=== PATIENT | female | born 1995 | race Caucasian/White ===

== ENCOUNTER 2018-12-24 09:01 | Day surgery (SDC) | payer OTHER ==
[2018-12-17 11:06] LABS: APPEARANCE,URINE CLEAR; BILIRUBIN,URINE NEGATIVE (NEGATIVE); COLOR,URINE YELLOW; GLUCOSE, URINE NEGATIVE (NEGATIVE); KETONES,URINE NEGATIVE (NEGATIVE); LEUKOCYTE ESTERASE,URINE NEGATIVE (NEGATIVE); NITRITE,URINE NEGATIVE (NEGATIVE); PROTEIN,URINE NEGATIVE (NEGATIVE); URINE SPECIFIC GRAVITY 1.014; UROBILINOGEN,URINE NEGATIVE mg/dL (<2.0)
[2018-12-17 11:08] LABS: HEMATOCRIT 41.1 % (36.0-47.0); HEMOGLOBIN 14.5 g/dL (12.0-15.5); MEAN CORPUSCULAR HEMOGLOBIN 31.6 pg (27.0-33.4); MEAN CORPUSCULAR HGB CONC 35.4 g/dL (32.0-36.0); MEAN CORPUSCULAR VOLUME 89 fl (80-97); PLATELET COUNT 171 10^3/uL (150-450); RED CELL DISTRIBUTION WIDTH 12.8 % (11.5-14.0); WHITE BLOOD COUNT 3.1 10^3/uL (4.0-10.5)
[2018-12-17 11:35] LABS: ANION GAP 10 (5-19); BLOOD UREA NITROGEN 18 mg/dL (7-20); CALCIUM 10.2 mg/dL (8.4-10.2); CARBON DIOXIDE 29 mmol/L (22-30); CHLORIDE 103 mmol/L (98-107); GLUCOSE 89 mg/dL (75-110); POTASSIUM 4.5 mmol/L (3.6-5.0)
[~2018-12-24 09:01] MED LIST: ACETAMINOPHEN 1,000 MG/100 ML RTUPB IV ONE; BUPIVACAINE HCL 0.25 % INJ/PF (2.5 MG/1 ML) 30 ML VIAL ONE; CEFAZOLIN 2 GM/D5W RTU 2 GM/50 ML RTUPB IV ONE; CEFAZOLIN 2 GM/D5W RTU 2 GM/50 ML RTUPB IV PRN; FENTANYL CITRATE INJ/PF 100 MCG/2 ML AMPUL ONE; GABAPENTIN 300 MG CAPSULE PO PRN; HYDROMORPHONE HCL INJ/PF 2 MG/ML AMPULE ONE; LACTATED RINGERS 1000 ML IV PRN; LIDOCAINE 0.5% INJ-PF (5 MG/ML) 50 ML SDV SUBCUT PRN; MIDAZOLAM 2 MG/2 ML INJ ONE; PROPOFOL INJ 200 MG/20 ML VIAL IV ONE; RINGERS SOLUTION,LACTATED 1,000 ML IV PRN
[2018-12-24] MEDS ORDERED: GABAPENTIN 300 MG CAPSULE ONE (09:27)
[2018-12-24 10:33] LABS: INTERNATIONAL RATION (INR) 0.96; PROTHROMBIN TIME 13.3 SEC (11.4-15.4)
[2018-12-24 10:34] LABS: PARTIAL THROMBOPLASTIN TIME 28.2 SEC (23.5-35.8)
[2018-12-24] MEDS ORDERED: SUCCINYLCHOLINE CHLORIDE INJ 200 MG/10 ML VIAL ONE (11:56)
[2018-12-24] MEDS ORDERED: DEXAMETHASONE SOD PHOSPHATE INJ 4 MG/1 ML VIAL ONE (11:56)
[2018-12-24] MEDS ORDERED: KETOROLAC TROMETHAMINE 60 MG/2 ML SDV ONE (11:56)
[2018-12-24] MEDS ORDERED: ONDANSETRON HCL INJ/PF 4 MG/2 ML SDV ONE (11:56)
[2018-12-24] MEDS ORDERED: MEPERIDINE HCL/PF INJ 25 MG/1 ML DISP.SYRIN IV PRN (12:09)
[2018-12-24] MEDS ORDERED: OXYCODONE-ACETAMINOPHEN 5-325 MG TABLET PO PRN ×2 (12:09)
[2018-12-24] MEDS ORDERED: PROMETHAZINE HCL INJ 25 MG/1 ML VIAL IV PRN (12:09)
[2018-12-24] MEDS ORDERED: ONDANSETRON HCL INJ/PF 4 MG/2 ML SDV IV PRN ×2 (12:09→14:43)
[2018-12-24] MEDS ORDERED: DIPHENHYDRAMINE HCL 50 MG/ML VIAL IV PRN (12:09)
[2018-12-24] MEDS ORDERED: MORPHINE SULFATE 10 MG/ML INJ IV PRN (12:09)
[2018-12-24] MEDS ORDERED: FENTANYL CITRATE INJ/PF 100 MCG/2 ML AMPUL IV PRN ×3 (12:09)
[2018-12-24] MEDS ORDERED: NALOXONE HCL INJ/PF 0.4 MG/1 ML SDV ONE (13:44)
--- NOTE | 2018-12-24 13:59 | Discharge Summary ---
Discharge Summary (SDC) - Discharge Final Diagnosis: Dysmenorrhea Gender Identity Disorder Date of Surgery: 12/24/18 Discharge Date: 12/24/18 Condition: Good Forms: Post Operative Treatment or Instructions: Robotic assisted total laparoscopic hysterectomy and bilateral salpingo- oophorectomy Prescriptions: Ibuprofen [Motrin 800 mg Tablet] 800 mg PO Q8H PRN #60 tab PRN Reason: Pain Scale Of 3 Oxycodone HCl/Acetaminophen [Percocet 5-325 mg Tablet] 1 tab PO ASDIR PRN #25 tab PRN Reason: Referrals: LISA NAIR MD [NO LOCAL MD] - Discharge Diet: As Tolerated Respiratory Treatments at Home: Deep Breathing/Coughing Discharge Activity: Activity As Tolerated, Balance Activity w/Rest, No Lifting/Push/Pulling - over 20 lbs for first week, Pelvic Rest, Slowly Increase Activity, Walk Frequently Home Care Assistance: None Needed Report the Following to Your Physician Immediately: Vomiting, Increase in Pain, Fever over 101 Degrees, Unusual Bleeding, Swelling, Drainage-Foul Smelling, Increased Vaginal Bleed, Large Clots, Wheezing, IV Site Infection Signs, Urinary Infection Signs
[2018-12-24] MEDS: OXYCODONE-ACETAMINOPHEN 5-325 MG TABLET PO PRN ×2 (15:52→20:56)
[2018-12-25] MEDS: OXYCODONE-ACETAMINOPHEN 5-325 MG TABLET PO PRN (04:25)
[2018-12-25 06:18] VITALS: BP 105/49
--- NOTE | 2019-01-21 12:19 | OPERATIVE REPORT E ---
Operative Report NAME: SEEMA TURCIOS : 1995 AGE: 23Y DATE OF SURGERY: 12/24/2018 ROOM: 208 PREOPERATIVE DIAGNOSES: 1. Dysmenorrhea and pelvic pain. 2. Elective hysterectomy for gender dysphoria with bilateral salpingo-oophorectomy. POSTOPERATIVE DIAGNOSES: 1. Dysmenorrhea and pelvic pain. 2. Elective hysterectomy for gender dysphoria with bilateral salpingo-oophorectomy. OPERATION: Robotic-assisted total laparoscopic hysterectomy and bilateral salpingo-oophorectomy. SURGEON: LISA NAIR M.D. ANESTHESIA: General. COMPLICATIONS: None. ESTIMATED BLOOD LOSS: 100 mL. URINE OUTPUT: Clear at the end of the procedure. SPECIMENS: Uterus, cervix, and bilateral tubes and ovaries. FINDINGS: Normal pelvic anatomy with normal-appearing ovaries, small mobile uterus, some notable areas of endometriosis on the posterior cul-de-sac, otherwise normal pelvic findings. INDICATIONS: This is a 1 patient with a history of gender dysphoria disorder who already underwent counseling and hormonal transformation with bilateral mastectomies. Also, this patient has been suffering from dysmenorrhea episodes on a monthly basis. The patient at this time is ready for definitive hysterectomy and bilateral salpingo-oophorectomy after discussing the risks, benefits, and alternatives, including, but not limited to, observation, medical management, and open abdominal hysterectomy and total vaginal hysterectomy were all discussed. The patient elected for the above procedure. PROCEDURE: After the patient was properly consented and taken to the operating room where general anesthesia was found to be adequate, she was transferred to a dorsal lithotomy position using adjustable Liang stirrups, prepped and draped in the usual sterile fashion. Surgical time out was held. Valle catheter was placed in the bladder and a VCare uterine manipulator was placed in the typical fashion. Size small VCare was used. Gloves were then changed and I proceeded above where 0.25% plain Marcaine local anesthetic was used to initiate local anesthesia in the umbilical incision site. Then, a 12 mm skin incision was made with a scalpel followed by a Veress needle introduced into the peritoneal cavity with correct placement ascertained by a drop in CO2 pressure to 0 mmHg. The pneumoperitoneum was established to a pressure of 15 mmHg. Then, a 12 mm bladeless trocar was advanced into the pneumoperitoneum and immediate visualization with the camera demonstrated an atraumatic entry. The patient was placed in slight Trendelenburg and then we placed 2 right and 1 left lateral 8 mm port following the typical routine of local anesthetic followed by skin incision and placement of the port under direct visualization with the camera. After all ports were in place and the patient was put in steep Trendelenburg, the robot was docked and the instruments were placed into the robotic arms. At this time I scrubbed out and proceeded to the robotic console. Pelvic anatomy was inspected and the findings were noted to be as above. The ureters were identified by peristalsis in their usual course at the pelvic brim bilaterally. Dissection was begun on the right side using the bipolar vessel sealer and the bipolar fenestrated graspers. The IP ligament was identified, elevated away from the visible ureter below at the pelvic brim. The IP ligament was then cauterized and transected proximal to the ovary. Then dissection was continued along the inferior portion of the ovary and tube, dissecting the tube free of the broad ligament and tracking in towards the cornua of the uterus. At this time the dissection was continued along the lateral portion of the uterine body down to the round ligament. The round ligament was then dissected and transected using the bipolar cautery. Next, the broad ligament was opened and the bladder flap was created anteriorly and inferiorly. Then the uterine artery was identified, dissected out, cauterized, and transected at the area next to the lower uterine segment. Then, this dissection was continued along the side of the cervix to the top of the ELI ring. The same dissection was repeated on the left side and the areas of dissection were noted to be hemostatic. Next, the edge of the VCare cervical cup was identified and a colpotomy was initiated using bipolar cautery. Next, the vessel sealer was switched out for monopolar scissors. The monopolar scissors were used to finish the colpotomy and carry it around circumferentially until the specimen was free and pulled through the vagina. The vaginal cuff was irrigated, and after monopolar scissors were switched out for the needle package car driver the cuff was closed with a running V-Loc suture of 2-0 Monocryl, incorporating the uterosacral pedicles. The pelvis was then copiously irrigated and hemostasis was noted to be excellent. The bipolar graspers were then used to fulgurate some small amounts of endometriosis in the posterior cul-de-sac. At this point the entire pelvis was again inspected. FloSeal agent was applied over the vaginal cuff. The abdomen was deflated and the robot was undocked and all instruments were removed. Next, the patient was taken out of Trendelenburg and attention was turned to the 12 mm incision. The fascia of this was closed with 0-Vicryl suture in a [id number] fashion. Next, the skin of the 8 mm incision and the 12 mm incision were closed with 4-0 Monocryl in a subcuticular fashion and a Dermabond dressing was applied to each site. The Valle catheter was removed from the bladder and a sponge stick was inserted into the vagina to ensure that there was no heavy bleeding. Hemostasis appeared to be excellent. Anesthesia was reversed. Sponge, lap and needle counts were correct at the end of the procedure, and the patient was taken to the PACU in stable condition. DICTATING PHYSICIAN: LISA NAIR M.D. [id number] PHY#: [id number] ID: [id number] JOB#: [id number] ACCT: [id number] cc:LISA NAIR M.D. >
== END 2018-12-25 07:30 | disposition home or self-care (01) ==
LOC: OROUT 09:01 → 2N 15:34 → OROUT 12-25 07:30
PROVIDERS: ATTEND Obstetrics & Gynecology
DX: N94.4 Primary dysmenorrhea (principal); F64.9 Gender identity disorder, unspecified; R10.2 Pelvic and perineal pain; N83.02 Follicular cyst of left ovary; N83.01 Follicular cyst of right ovary; Z79.899 Other long term (current) drug therapy
CPT/HCPCS: 58571; S2900; 36415; 80048; 81001; 81025; 840; 84132; 85027; 85610; 85730; 86850; 86900; 86901; 88307; J0131; J0330; J0690; J1100; J1170; J1885; J2250; J2310; J2405; J2704; J3010